=== PATIENT | female | born 1940 | race Caucasian/White ===

== ENCOUNTER 2017-07-29 08:00 | Outpatient (CLI) | payer MEDICARE, OTHER ==
[2017-07-29 12:56] LABS: CHOL/HDL RATIO 2.7 (<4.4); CHOLESTEROL 145 mg/dL; HDL CHOLESTEROL 54 mg/dL; LDL CHOLESTEROL,CALCULATED 72 mg/dL; LDL/HDL RATIO 1.3 (<4.4); VLDL CHOLESTEROL 19 mg/dL
== END 2017-07-29 08:01 | disposition home or self-care (01) ==
LOC: LAB.N 08:00
PROVIDERS: ATTEND Nurse Practitioner Gerontology
DX: E78.5 Hyperlipidemia, unspecified (principal)
CPT/HCPCS: 36415; 80061; 83721

== ENCOUNTER 2017-12-13 10:01 | Outpatient (CLI) | payer MEDICARE, OTHER ==
--- NOTE | 2017-12-16 17:51 | Mammography Report ---
Procedure Date: 12/13/2017 Accession Number: [id number] / [id number] Procedure: ANGELA - Screening Mammo Dig Bilat CPT Code: FULL RESULT: EXAM: Screening Mammo Dig Bilat DATE: 12/13/2017 10:22 AM CLINICAL HISTORY: Family history of breast cancer, history of benign cyst excision. TECHNIQUE: Bilateral digital CC and MLO projections. COMPARISON: 12/05/2015, November 30, 2014, November 30, 2013, 11/27/2012, October 31, 2011 and October 30, 2010. FINDINGS: The breast tissue is heterogeneously dense. Postsurgical changes right breast stable. No new suspicious masses, clustered microcalcifications, or regions of architectural distortion are identified. IMPRESSION: Benign findings RECOMMENDATION: Routine annual screening unless otherwise clinically indicated. BIRADS CATEGORY 2: Benign findings STANDARD QUALIFYING STATEMENTS: 1. This examination was reviewed with the aid of Computer-Aided Detection (CAD). 2. A negative or benign imaging report should not delay biopsy if clinically suspicious findings are present. Consider surgical consultation if warrented. More than 5% of cancers are not identified by imaging. 3. Dense breasts may obscure an underlying neoplasm.
== END 2017-12-13 10:02 | disposition home or self-care (01) ==
LOC: DI 10:01
PROVIDERS: ATTEND Nurse Practitioner Gerontology
DX: Z12.31 Encounter for screening mammogram for malignant neoplasm of breast (principal); Z80.3 Family history of malignant neoplasm of breast
CPT/HCPCS: 77067

== ENCOUNTER 2018-07-03 07:27 | Outpatient (CLI) | payer MEDICARE, OTHER ==
[2018-07-03 14:44] LABS: CHOLESTEROL 230 mg/dL; HDL CHOLESTEROL 46 mg/dL; LDL CHOLESTEROL,CALCULATED 155 mg/dL; LDL/HDL RATIO 3.4 (<4.4); VLDL CHOLESTEROL 29 mg/dL
== END 2018-07-03 23:59 | disposition home or self-care (01) ==
LOC: LAB.N 07:27
PROVIDERS: ATTEND Nurse Practitioner Gerontology
DX: E78.5 Hyperlipidemia, unspecified (principal)
CPT/HCPCS: 36415; 80061; 83721

== ENCOUNTER 2018-12-29 11:19 | Outpatient (CLI) | payer MEDICARE, OTHER ==
--- NOTE | 2018-12-30 10:38 | Mammography Report ---
Reason: ENCNTR SCREEN MAMMOGRAM FOR MALIGNANT NEOPLASM OF Procedure Date: 12/29/2018 Accession Number: [id number] / [id number] Procedure: [facility]N - Screening Mammo Dig Bilat CPT Code: FULL RESULT: EXAM: Screening Mammo Dig Bilat DATE: 12/29/2018 11:47 AM CLINICAL HISTORY: Routine screening. Sister with breast cancer at age 50 TECHNIQUE: (B) - Bilateral CC and MLO views were obtained. COMPARISON: 12/13/2017, 12/05/2015, 11/30/2014 and 11/30/2013 PARENCHYMAL PATTERN: (D) - The breasts demonstrate heterogeneously dense fibroglandular parenchyma bilaterally. FINDINGS: No significant interval change. There are no suspicious masses, calcifications, or areas of distortion. Few scattered benign-appearing calcifications are present. IMPRESSION: Negative examination. BI-RADS category 1. RECOMMENDATION: (ANNUAL) - Recommend routine annual screening mammography. BI-RADS CATEGORY: (1) - Negative. STANDARD QUALIFYING STATEMENTS: 1. This examination was not reviewed with the aid of Computer-Aided Detection (CAD). 2. A negative or benign imaging report should not preclude biopsy if clinically suspicious findings are present. 3. Dense breasts may obscure an underlying neoplasm. 4. This examination was reviewed without the aid of 3D breast imaging (tomosynthesis).
== END 2018-12-29 11:20 | disposition home or self-care (01) ==
LOC: DI.N 11:19
PROVIDERS: ATTEND Nurse Practitioner Gerontology
DX: Z12.31 Encounter for screening mammogram for malignant neoplasm of breast (principal); Z80.3 Family history of malignant neoplasm of breast
CPT/HCPCS: 77067

== ENCOUNTER 2019-04-30 06:27 | Day surgery (SDC) | payer MEDICARE, OTHER ==
[2019-04-30] MEDS ORDERED: MIDAZOLAM 2 MG/2 ML VIAL IVP ONE (06:28)
[2019-04-30] MEDS ORDERED: PHENYLEPHRINE 2.5% OPHTH 2 ML DROPS ONE (06:33)
[2019-04-30] MEDS ORDERED: PROPARACAINE 0.5% OPHTH DROPS 15 ML ONE (06:33)
[2019-04-30] MEDS ORDERED: KETOROLAC 0.45% OPHTH DROPS ONE (06:33)
[2019-04-30] MEDS ORDERED: CYCLOPENTOLATE 1% OPHTH DROPS 2 ML ONE (06:33)
[2019-04-30] MEDS ORDERED: LACTATED RINGERS 500 ML IV ONE (06:54)
[2019-04-30] MEDS ORDERED: KETOROLAC 0.45% OPHTH DROPS RIGHTEYE ONE (07:00)
[2019-04-30] MEDS ORDERED: CYCLOPENTOLATE 1% OPHTH DROPS 2 ML RIGHTEYE ONE (07:00)
[2019-04-30] MEDS ORDERED: PHENYLEPHRINE 2.5% OPHTH 2 ML DROPS RIGHTEYE ONE (07:00)
[2019-04-30] MEDS ORDERED: PROPARACAINE 0.5% OPHTH DROPS 15 ML RIGHTEYE ONE ×2 (07:00→08:09)
[2019-04-30] MEDS ORDERED: TRIAMCIN/MOXIFLOX OPHTHALMIC 0.6 ML VIAL IO ONE ×2 (07:19→08:24)
[2019-04-30] MEDS ORDERED: BSS/LIDOCAINE/EPINEPHRINE 1 ML SYRINGE ONE (07:20)
[2019-04-30] MEDS ORDERED: VANCOMYCIN OPHTHALMI 8MG/0.8ML 8 MG/0.8 ML SYRINGE IO ONE ×2 (07:20→08:24)
[2019-04-30] MEDS ORDERED: TIMOLOL 0.5% OPHTH DROPS ONE (07:20)
[2019-04-30] MEDS ORDERED: BRIMONIDINE 0.2% OPHTH DROPS 5 ML ONE (07:20)
--- NOTE | 2019-04-30 07:36 | ANESTHESIA ---
Pre-Anesthesia VS, & Labs - Diagnosis right senile combined cataract - Procedure Right cataract with lens implant Vital Signs: Temp Pulse Resp BP Pulse Ox 36.7 C 76 16 144/64 H 100 04/30/19 06:54 04/30/19 06:54 04/30/19 06:54 04/30/19 06:54 04/30/19 06:54 Height 5 ft 2 in Weight (kg) 52 kg - NPO >8 hours - Is Patient ?: No Home Medications and Allergies Home Medications: Ambulatory Orders Multivitamin [Multiple Vitamins] 1 DAILY 04/30/19 Multivitamin [Multiple Vitamins] 1 DAILY 04/30/19 Allergies/Adverse Reactions: Allergies Allergy/AdvReac Type Severity Reaction Status Date / Time No Known Drug Allergies Allergy Verified 04/21/13 11:48 Anes History & Medical History - Anesthetic History Anesthesia Complications: reports: No previous complications - Medical History Cardiovascular: reports: None Pulmonary: reports: None Gastrointestinal: reports: None Urinary: reports: None Musculoskeletal: reports: None Endocrine/Autoimmune: reports: None Skin: reports: None Smoking Status: Never smoker - Surgical History General: Colonoscopy Gynecologic: Oophrectomy, Other Exam General: Alert Dental: WNL Mouth Opening: Greater than 4 Fingerbreadths Neck Mobility: Normal Mallampati classification: II Thyromental Distance: greater than 6 cm Respiratory: Lungs clear Cardiovascular: Regular rate, Normal S1, Normal S2 Plan Anesthesia Type: MAC Consent for Procedure(s) Verified and Reviewed: Yes Code Status: Attempt Resuscitation ASA classification: 2-Mild systemic disease Is this case an emergency?: No
[2019-04-30] MEDS ORDERED: BRIMONIDINE 0.2% OPHTH DROPS 5 ML OPTH ONE (08:15)
[2019-04-30] MEDS ORDERED: EPINEPHrine 1 MG/ML AMP IVP ONE (08:15)
[2019-04-30] MEDS ORDERED: BSS/LIDOCAINE/EPINEPHRINE 1 ML SYRINGE IO ONE (08:21)
[2019-04-30] MEDS ORDERED: TIMOLOL 0.5% OPHTH DROPS OPTH ONE (08:21)
[2019-04-30] MEDS ORDERED: CHONDR SULF/HYALURONATE SYRINGE IO ONE (08:21)
[2019-04-30 08:47] VITALS: BP 110/46
--- NOTE | 2019-04-30 09:55 | OPERATIVE REPORT ---
DATE OF SERVICE: 04/30/2019 Physician: Osito Santiago MD PREOPERATIVE DIAGNOSIS: Visually significant cataract, right eye. This was her first cataract surgery. POSTOPERATIVE DIAGNOSIS: Visually significant cataract, right eye. This was her first cataract surgery. DESCRIPTION OF PROCEDURE: Phacoemulsification with posterior chamber intraocular lens implant, right eye. SURGEON: Osito Santiago MD ANESTHESIA: Monitored anesthesia care. COMPLICATIONS: None. OPERATIVE INDICATIONS: This is a 78-year-old woman with progressive vision loss in the right eye due to 3+ nuclear sclerotic and 3+ cortical cataract. Best corrected visual acuity was 20/30 with glare to hand motion in the right eye. Indications for surgery were difficulty seeing words, closed caption or game scores on TV, difficulty driving at night because of headlights from other vehicles, and difficulty with glare or bright lights in any situation. She was consented at length concerning risks and benefits of cataract surgery, after which she expressed a desire to proceed with surgery. OPERATIVE PROCEDURE: Patient was taken to OR #3 and placed under monitored anesthesia care. A surgical timeout was conducted confirming correct patient, correct procedure, and correct surgical site. She was given topical anesthesia, and prepped and draped in the usual sterile fashion. The eye was entered at the 12 and 9 o'clock positions. Intracameral Shugarcaine was injected into the anterior chamber, followed by Viscoat. A continuous-tear curvilinear capsulorrhexis was performed. The nucleus was hydrodissected and phacoemulsified. The cortex was evacuated using automated infusion and aspiration. Provisc was injected in the capsular bag, and a 22.5 diopter intraocular lens was inserted in the bag. Approximately 0.25 mL of a mixture of triamcinolone and moxifloxacin was injected intravitreally through the scleral. An additional 0.55 mL of a mixture of triamcinolone, moxifloxacin and vancomycin was injected subconjunctivally in the superior quadrant for infection and inflammation prophylaxis. I and A was used to evacuate the viscoelastic materials. The eye was inflated to physiologic pressure using balanced salt solution and found to be watertight. Patient was taken from the operating room in good condition and given postoperative instructions. TD: 04/30/2019 08:39 [facility]
== END 2019-04-30 06:28 | disposition home or self-care (01) ==
LOC: SDS 06:27
PROVIDERS: ATTEND Ophthalmology
PROC: 08RJ3JZ Replacement of Right Lens with Synthetic Substitute, Percutaneous Approach (ICD-10-PCS; principal; 2019-04-30 08:00)
DX: H25.811 Combined forms of age-related cataract, right eye (principal)
CPT/HCPCS: 66984; A9270; J3490; V2632

== ENCOUNTER 2019-06-04 07:32 | Day surgery (SDC) | payer MEDICARE, OTHER ==
[~2019-06-04 07:32] MED LIST: CYCLOPENTOLATE 1% OPHTH DROPS 2 ML ONE; KETOROLAC 0.45% OPHTH DROPS ONE; PHENYLEPHRINE 2.5% OPHTH 2 ML DROPS ONE; PROPARACAINE 0.5% OPHTH DROPS 15 ML ONE
[2019-06-04] MEDS ORDERED: LACTATED RINGERS 500 ML IV ONE (07:50)
[2019-06-04] MEDS ORDERED: KETOROLAC 0.45% OPHTH DROPS LEFTEYE ONE (08:01)
[2019-06-04] MEDS ORDERED: PROPARACAINE 0.5% OPHTH DROPS 15 ML LEFTEYE ONE ×2 (08:02→09:12)
[2019-06-04] MEDS ORDERED: CYCLOPENTOLATE 1% OPHTH DROPS 2 ML LEFTEYE ONE (08:02)
[2019-06-04] MEDS ORDERED: PHENYLEPHRINE 2.5% OPHTH 2 ML DROPS LEFTEYE ONE (08:02)
--- NOTE | 2019-06-04 08:16 | ANESTHESIA ---
Pre-Anesthesia VS, & Labs - Diagnosis left senile combined cataract - Procedure Left cataract extraction with intraocular lens implant Vital Signs: Temp Pulse Resp BP Pulse Ox 36.3 C L 63 16 141/68 H 100 06/04/19 07:50 06/04/19 07:50 06/04/19 07:50 06/04/19 07:50 06/04/19 07:50 Height 5 ft 2 in Weight (kg) 51 kg - NPO >8 hours - Is Patient ?: No Home Medications and Allergies Multivitamin [Multiple Vitamins] 1 tab PO DAILY 04/30/19 Allergies/Adverse Reactions: Allergies Allergy/AdvReac Type Severity Reaction Status Date / Time No Known Drug Allergies Allergy Verified 04/21/13 11:48 Anes History & Medical History - Anesthetic History Anesthesia Complications: reports: No previous complications - Medical History Cardiovascular: reports: None Pulmonary: reports: None Gastrointestinal: reports: None Urinary: reports: None Musculoskeletal: reports: None Endocrine/Autoimmune: reports: None Skin: reports: None Smoking Status: Never smoker - Surgical History General: Colonoscopy Gynecologic: Oophrectomy, Other Exam General: Alert Dental: WNL Mouth Opening: Greater than 4 Fingerbreadths Mallampati classification: II Thyromental Distance: greater than 6 cm Respiratory: Lungs clear Cardiovascular: Regular rate, Normal S1, Normal S2 Mental/Cognitive Status: Alert/Oriented X3 Plan Anesthesia Type: MAC Consent for Procedure(s) Verified and Reviewed: Yes Code Status: Attempt Resuscitation ASA classification: 1-Healthy patient Is this case an emergency?: No
[2019-06-04] MEDS ORDERED: BRIMONIDINE 0.2% OPHTH DROPS 5 ML ONE (08:43)
[2019-06-04] MEDS ORDERED: EPINEPHrine 1 MG/ML AMP ONE (08:43)
[2019-06-04] MEDS ORDERED: TRIAMCIN/MOXIFLOX OPHTHALMIC 0.6 ML VIAL IO ONE (08:43)
[2019-06-04] MEDS ORDERED: TIMOLOL 0.5% OPHTH DROPS ONE (08:44)
[2019-06-04] MEDS ORDERED: VANCOMYCIN OPHTHALMI 8MG/0.8ML 8 MG/0.8 ML SYRINGE IO ONE (08:44)
[2019-06-04] MEDS ORDERED: BSS/LIDOCAINE/EPINEPHRINE 1 ML SYRINGE ONE (08:44)
[2019-06-04] MEDS ORDERED: MIDAZOLAM 2 MG/2 ML VIAL IVP ONE (08:59)
[2019-06-04] MEDS ORDERED: EPINEPHrine 1 MG/ML AMP IVP ONE (09:10)
[2019-06-04] MEDS ORDERED: BRIMONIDINE 0.2% OPHTH DROPS 5 ML OPTH ONE (09:10)
[2019-06-04] MEDS ORDERED: TIMOLOL 0.5% OPHTH DROPS OPTH ONE (09:10)
[2019-06-04] MEDS ORDERED: CHONDR SULF/HYALURONATE SYRINGE IO ONE (09:10)
[2019-06-04] MEDS ORDERED: BSS/LIDOCAINE/EPINEPHRINE 1 ML SYRINGE IO ONE (09:11)
[2019-06-04 09:31] VITALS: BP 107/68
--- NOTE | 2019-06-04 10:46 | OPERATIVE REPORT ---
DATE OF SERVICE: 06/04/2019 Physician: Osito Santiago MD PREOPERATIVE DIAGNOSIS: Visually significant cataract, left eye. Cataract surgery was performed on the right eye in 04/30/2019. POSTOPERATIVE DIAGNOSIS: Visually significant cataract, left eye. Cataract surgery was performed on the right eye in 04/30/2019. PROCEDURE: Phacoemulsification with posterior chamber intraocular lens implant, left eye. SURGEON: Osito Santiago MD ANESTHESIA: Monitored anesthesia care. COMPLICATIONS: None. OPERATIVE INDICATIONS: This is a 78-year-old woman with progressive vision loss in the left eye due to 3+ nuclear sclerotic and 2 to 3+ cortical cataract. Best corrected visual acuity was 20/30 with glare to 20/630 in the left eye. Indications for surgery were overall decrease in vision, difficulty seeing words on a computer screen, difficulty reading, difficulty seeing words, closed caption or game scores on TV, difficulty driving at night because of headlights from other vehicles, and difficulty with glare or bright lights in any situation. She was consented at length concerning risks and benefits of cataract surgery, after which she expressed a desire to proceed with surgery. OPERATIVE PROCEDURE: Patient was taken into OR #3 and placed under monitored anesthesia care. Surgical timeout was conducted confirming correct patient, correct procedure, and correct surgical site. She was given topical anesthesia and then prepped and draped in the usual sterile fashion. The eye was entered at the 6 and 3 o'clock positions. Intracameral Shugarcaine was injected into the anterior chamber, followed by Viscoat. A continuous-tear curvilinear capsulorrhexis was performed. Nucleus was hydrodissected and phacoemulsified. The cortex was evacuated using automated infusion and aspiration. Provisc was injected in the capsular bag, and a 23.5 diopter intraocular lens inserted in the bag. Automated infusion and aspiration was used to evacuate the viscoelastic materials. The eye was inflated to physiologic pressure using balanced salt solution and found to be watertight. Approximately 0.25 mL of a mixture of triamcinolone, moxifloxacin was injected transsclerally into the vitreous in the inferior temporal quadrant. An additional 0.55 mL of a mixture of triamcinolone, moxifloxacin and vancomycin was injected subconjunctivally in the superior quadrant for infection and inflammation prophylaxis. Wound integrity was checked with Weck-Coni sponges and found to be watertight. Patient was taken from the operating room in good condition and given postoperative instructions. TD: 06/04/2019 09:26 YEN
== END 2019-06-04 07:33 | disposition home or self-care (01) ==
LOC: SDS 07:32
PROVIDERS: ATTEND Ophthalmology
PROC: 08RK3JZ Replacement of Left Lens with Synthetic Substitute, Percutaneous Approach (ICD-10-PCS; principal; 2019-06-04 09:00)
DX: H25.812 Combined forms of age-related cataract, left eye (principal)
CPT/HCPCS: 66984; A9270; J3490; V2632